=== PATIENT | female | born 1990 | race Caucasian/White ===

== ENCOUNTER 2017-10-11 17:43 | Emergency (ER) | payer SELFPAY ==
[~2017-10-11] VITALS: Ht 170.2 cm; Wt 89.3 kg
[2017-10-11 17:51] VITALS: Ht 170.2 cm; Wt 89.3 kg
[2017-10-11 21:29] VITALS: BP 114/75
== END 2017-10-11 21:29 | disposition home or self-care (01) ==
LOC: ED 17:43
DX: N83.202 Unspecified ovarian cyst, left side (principal)

== ENCOUNTER 2017-11-07 02:51 | Emergency (ER) | payer SELFPAY ==
[~2017-11-07] VITALS: Ht 170.2 cm; Wt 89.8 kg
[2017-11-07 03:01] VITALS: Ht 170.2 cm; Wt 89.8 kg
[2017-11-07 04:01] LABS: BASOPHIL % 0.4 % (0-2); PLATELET COUNT 325 x10^3mcL (130-400); RED CELL DISTRIBUTION WIDTH 12.1 % (11.5-14.5)
[2017-11-07 04:40] LABS: AMPHETAMINE QUAL UR NONE DETECTED (NEG <=1000)
[2017-11-07 04:50] LABS: CALCIUM 8.8 mg/dL (8.5-10.1); CARBON DIOXIDE 26.7 mmol/L (21-32); CHLORIDE SERUM 102 mmol/L (98-107); CREATININE SERUM 0.7 mg/dL (0.6-1.0); GFR1 > 60 mL/min; GLUCOSE SERUM 100 mg/dL (74-106); POTASSIUM SERUM 3.4 mmol/L (3.5-5.1); SODIUM SERUM 141 mmol/L (136-145)
[2017-11-07 04:54] LABS: ALKALINE PHOSPHATASE 91 U/L (46-116); ALT/SGPT 54 U/L (14-59); AST/SGOT 21 U/L (15-37); BILIRUBIN TOTAL 0.3 mg/dL (0.20-1.00); TOTAL PROTEIN, SERUM 8.1 g/dL (6.4-8.2)
[2017-11-07 09:00] VITALS: BP 122/74
== END 2017-11-07 09:00 | disposition home or self-care (01) ==
LOC: ED 02:51
PROVIDERS: Emergency Medicine
DX: R07.9 Chest pain, unspecified (principal)
CPT/HCPCS: 83880; 85378; J2270; Q0092